=== PATIENT | male | born 1945 | race Caucasian/White ===

== ENCOUNTER → 2016-04-23 | Outpatient (CLI) | payer MEDICARE, OTHER | END | disposition home or self-care (01) | LOC: PCVCCLINIC 10:20 | PROVIDERS: ATTEND Internal Medicine | DX: I25.10 Atherosclerotic heart disease of native coronary artery without angina pectoris (principal); E11.9 Type 2 diabetes mellitus without complications; E78.5 Hyperlipidemia, unspecified; I65.29 Occlusion and stenosis of unspecified carotid artery; G47.30 Sleep apnea, unspecified; Z95.1 Presence of aortocoronary bypass graft | CPT/HCPCS: 80061; 93005; G0463 ==

== ENCOUNTER → 2016-10-25 | Outpatient (CLI) | payer MEDICARE, OTHER | END | disposition home or self-care (01) | LOC: PCVCCLINIC 13:50 | PROVIDERS: ATTEND Internal Medicine | DX: I25.10 Atherosclerotic heart disease of native coronary artery without angina pectoris (principal); I65.23 Occlusion and stenosis of bilateral carotid arteries; E78.5 Hyperlipidemia, unspecified; E11.9 Type 2 diabetes mellitus without complications; G47.33 Obstructive sleep apnea (adult) (pediatric); Z95.1 Presence of aortocoronary bypass graft; Z79.82 Long term (current) use of aspirin; Z79.84 Long term (current) use of oral hypoglycemic drugs; Z79.899 Other long term (current) drug therapy; Z87.891 Personal history of nicotine dependence | CPT/HCPCS: 80061; 93005; G0463 ==

== ENCOUNTER → 2017-06-13 | Outpatient (CLI) | payer MEDICARE, OTHER | END | disposition home or self-care (01) | LOC: PCVCCLINIC 14:49 | DX: I25.10 Atherosclerotic heart disease of native coronary artery without angina pectoris (principal); I65.23 Occlusion and stenosis of bilateral carotid arteries; E78.5 Hyperlipidemia, unspecified; G47.33 Obstructive sleep apnea (adult) (pediatric); E11.9 Type 2 diabetes mellitus without complications; Z95.1 Presence of aortocoronary bypass graft; Z87.891 Personal history of nicotine dependence; Z79.899 Other long term (current) drug therapy; Z79.82 Long term (current) use of aspirin | CPT/HCPCS: 80061; 93005; G0463 ==

== ENCOUNTER → 2017-10-13 | Outpatient (CLI) | payer MEDICARE, OTHER | END | disposition home or self-care (01) | LOC: PCVCCLINIC 10:00 | DX: I25.10 Atherosclerotic heart disease of native coronary artery without angina pectoris (principal); I65.23 Occlusion and stenosis of bilateral carotid arteries; E78.5 Hyperlipidemia, unspecified; G47.33 Obstructive sleep apnea (adult) (pediatric); E11.9 Type 2 diabetes mellitus without complications; Z95.1 Presence of aortocoronary bypass graft; Z87.891 Personal history of nicotine dependence; Z79.82 Long term (current) use of aspirin | CPT/HCPCS: 93005; G0463 ==

== ENCOUNTER → 2019-02-08 | Outpatient (CLI) | payer MEDICARE, OTHER ==
--- NOTE | 2019-02-08 16:46 | PCVCIMAG ---
APPROVED REPORT Study performed: 02/08/2019 15:04:25 Exam: Stress Echocardiogram Indication: CAD s/p CABG Patient Location: Echo lab Stress Nurse: Melanie Nunez RN Room #: 2 Status: routine Ht: 5 ft 11 in HR: 76 bpm BP: 118/64 mmHg Rhythm: NSR Medical History Medical History: CAD s/p CABG, Hyperlipidemia, ANNI Cardiac Risk Factors: Hyperlipidemia Previous Cardiac Procedures: CABG Pretest Chest Pain Characteristics: No chest pain Exercise History: Sedentary Procedure The patient underwent an Exercise Stress Test using the Ruslan Protocol. Blood pressure, heart rate, and EKG were monitored. An Echocardiogram was performed by botany technician in four stages in quad fashion. At peak stress, four selected images were obtained and placed side by side with resting images for comparison. Stress Test Details Stress Test: Exercise stress testing was performed using a Ruslan protocol. HR Resting HR: 76 bpmMax Heart Rate (APMHR): 146 bpm Max HR Achieved: 120 bpmTarget HR (85% APMHR): 124 bpm % of APMHR: 82 Recovery HR: 74 bpm HR response to stress: Normal HR response to stress BP Resting BP: 118/64 mmHg Max BP: 154/76 mmHg Recovery BP: 148/68 mmHg BP response to stress: Normal blood pressure response to stress. ECG Resting ECG: Sinus Rhythm Stress ECG: Sinus Rhythm, NSSTT changes ST Change: Horizontal ST depression Maximum ST Deviation: 0.5 mm Arrhythmia: None Recovery ECG: Sinus Rhythm, nonspecific ST-T abnormalities Recovery ST Change: Normal Recovery ST Deviation: 0 mm Recovery Arrhythmia: None Clinical Reason for Termination: Maximal effort Stress Symptoms: Dyspnea Exercise duration: 4 min 37 sec Highest Stage Achieved: Stage 2: 2.5 mph at 12% grade. Exercise capacity: 7.0 METs Overall Exercise Capacity for Age: Poor Scale: Sedentary Angina Score: None No complications. Stress ECG Conclusion Clinical: Non-ischemic ECG: Equivocally abnormal Perera Treadmill Score is 1.5 which is Moderate risk. Pre-Stress Echo The resting Echocardiogram showed normal left ventricular contractility with an estimated Ejection Fraction of about 55-60%. Normal wall motion in all segments on baseline images. Post-Stress Echo The stress Echocardiogram showed normal left ventricular contractility with an estimated Ejection Fraction of about 65-70%. Normal augmentation of wall motion in all segments on post stress images. Clinical No clinical or ECG evidence for ischemia. Conclusion Clinical Response: Non-ischemic Exercise Capacity: Below Average Stress ECG Response: Equivocal Stress Echo Images: Non-ischemic Normal stress echocardiogram with near maximal exercise stress. Normal color doppler. No regurgitation or stenosis present on pulmonic, mitral, tricuspid and aortic valves. <Conclusion> Normal stress echocardiogram with near maximal exercise stress. Normal color doppler. No regurgitation or stenosis present on pulmonic, mitral, tricuspid and aortic valves.
== END | disposition home or self-care (01) ==
LOC: PCVCIMAG 14:43
PROVIDERS: ATTEND Internal Medicine
DX: I25.10 Atherosclerotic heart disease of native coronary artery without angina pectoris (principal); G47.33 Obstructive sleep apnea (adult) (pediatric); E78.5 Hyperlipidemia, unspecified; E11.9 Type 2 diabetes mellitus without complications; Z95.1 Presence of aortocoronary bypass graft
CPT/HCPCS: 93325; 93351